=== PATIENT | female | born 1945 ===

== ENCOUNTER 2017-09-07 08:28 | Outpatient (CLI) | payer OTHER | END 2017-09-07 08:41 | disposition home or self-care (01) | LOC: SONOGRAMA 08:28 | DX: D49.2 Neoplasm of unspecified behavior of bone, soft tissue, and skin (principal) ==

== ENCOUNTER 2018-06-06 07:05 | Outpatient (CLI) | payer OTHER | END 2018-06-06 07:08 | disposition home or self-care (01) | LOC: SONOGRAMA 07:05 | DX: E04.1 Nontoxic single thyroid nodule (principal) ==